=== PATIENT | female | born 1995 | race Caucasian/White ===

== ENCOUNTER 2017-03-22 19:51 | Emergency (ER) | payer MEDICAID ==
[2017-03-22 20:28] VITALS: BP 125/63
--- NOTE | 2017-03-22 21:02 | UC ---
Abdominal Pain Female HPI - HPI Summary HPI Summary: compalint of LLQ pain that started 4 days ago doesn't feel like menstrual cramping constant aching pain sometimes it is a stabbing pain, pressure- radites into he lower back has felt nauseated- denies vomiting and diarrhea denies dysuira- no pain, denies increase in urgencyor frequency last BM this morning- normal formed stool - no blood in stool denies fever and chills denies vaginal discharge LMP 02/23/17 has been taking ibuprofen and naproxen without any relief today - History of Current Complaint Chief Complaint: UCAbdominalPain Stated Complaint: LEFT LOWER ABDOMINAL PAIN Hx Obtained From: Patient Hx Last Menstrual Period: 02/23/17 Allergies/Adverse Reactions: Allergies Allergy/AdvReac Type Severity Reaction Status Date / Time Penicillins Allergy Severe Hives Verified 03/22/17 20:23 Cephalosporins Allergy Hives Verified 03/22/17 20:23 Sulfa Antibiotics Allergy Hives Verified 03/22/17 20:23 Home Medications: Home Medications Naproxen Sodium [Naproxen Sodium 220 mg cap] 440 mg PO ONCE PRN 03/22/17 [ History Confirmed 03/22/17] PMH/Surg Hx/FS Hx/Imm Hx Previously Healthy: Yes Endocrine History Of: Denies: Diabetes, Thyroid Disease Cardiovascular History Of: Denies: Cardiac Disorders, Hypertension Respiratory History Of: Denies: COPD, Asthma GI/ History Of: Denies: Ulcer - Surgical History Surgical History: None - Family History Known Family History: Positive: Hypertension, Diabetes Negative: Cardiac Disease - Social History Occupation: Employed Part-time, Student Lives: With Family Alcohol Use: None Substance Use Type: None Smoking Status (MU): Never Smoked Tobacco - Immunization History Most Recent Influenza Vaccination: Not the Season Vaccination Up to Date: Yes Review of Systems Constitutional: Negative Skin: Negative Eyes: Negative ENT: Negative Respiratory: Negative Cardiovascular: Negative Gastrointestinal: Abdominal Pain Genitourinary: Negative Motor: Negative Neurovascular: Negative Musculoskeletal: Negative Neurological: Negative Psychological: Negative All Other Systems Reviewed And Are Negative: Yes Physical Exam Triage Information Reviewed: Yes Appearance: No Pain Distress, Well-Nourished, Obese Vital Signs: Initial Vital Signs Temp 99.3 F 03/22/17 20:24 Pulse 88 03/22/17 20:24 Resp 18 03/22/17 20:24 BP 125/63 05/06/17 20:24 Pulse Ox 100 03/22/17 20:24 Vital Signs Reviewed: Yes Eyes: Positive: Conjunctiva Clear ENT: Positive: Pharynx normal, TMs normal Neck: Positive: No Lymphadenopathy Respiratory: Positive: Lungs clear, Normal breath sounds, No respiratory distress, No accessory muscle use Cardiovascular: Positive: RRR, No Murmur, Pulses Normal Abdomen Description: Positive: No Organomegaly, Soft, Other: - LUQ/LLQ tenderness. Negative: CVA Tenderness (R), CVA Tenderness (L), Distended, Guarding Bowel Sounds: Positive: Present Musculoskeletal: Positive: No Edema Neurological: Positive: Alert Psychological Exam: Normal Skin Exam: Normal Abd Pain Female Course/Dx - Course Course Of Treatment: exam completed. UA is negative. due to LLQ/LUQ pain will send to higher level of care for further evaluation - Differential Dx/Diagnosis Differential Diagnosis: Bowel Obstruction, Constipation, Diverticulitis, Ectopic , Ovarian Cyst Provider Diagnoses: LLQ,LUQ abdominal pain - Physician Notification/Consults Discussed Patient Care With: Dr Lutz Time Discussed With Above Provider: 21:27 Discharge - Discharge Plan Condition: Stable Disposition: TRANS HIGHER L OF CARE FAC Referrals: Gray Wynn MD [Primary Care Provider] -
== END 2017-03-22 21:33 | disposition short-term general hospital (02) ==
LOC: UCCORT 19:51
DX: R10.32 Left lower quadrant pain (principal); R10.12 Left upper quadrant pain; Z32.02 Encounter for pregnancy test, result negative; E66.9 Obesity, unspecified; Z88.1 Allergy status to other antibiotic agents; Z88.2 Allergy status to sulfonamides
CPT/HCPCS: 81003; 84702; 99212; G0463

== ENCOUNTER 2017-10-23 17:25 | Emergency (ER) | payer MEDICAID, OTHER ==
--- NOTE | 2017-10-23 18:57 | UC ---
Hip/Pelvis Pain - HPI Summary HPI Summary: Increased pain in the right hip without any apparent injury, rates 05/26. No relief with ibuprofen 600mg x 2 doses only. Has a 2 year history of off and on pain in the right hip without a clear precipitant. Was a high school cheerleader. Exacerbated by walking, increases late in the day, does not disrupt sleep. - History Of Current Complaint Chief Complaint: UCLowerExtremity Stated Complaint: RT HIP PAIN Time Seen by Provider: 10/23/17 18:50 Hx Obtained From: Patient Hx Last Menstrual Period: 10/10/17 ?: No Onset/Duration: Gradual Onset, Lasting Days - 2 days Timing: Intermittent Episodes Lasting: - days Severity Initially: Mild Severity Currently: Moderate Pain Intensity: 7 Pain Scale Used: 0-10 Numeric Location: Discrete At: - right greater trochanter, Radiates To: - groin Character Of Pain: Aching Aggravating Factor(s): Movement, Weight Bearing Alleviating Factor(s): Rest, OTC Medications - minimal trial of nsaid Associated Signs And Symptoms: Negative: Knee Pain Related History: Similar Episode/Dx As - never evaluated, but has had recurrent pain x 2 years. - Risk Factors Septic Arthritis Risk Factor: Negative - Allergies/Home Medications Allergies/Adverse Reactions: Allergies Allergy/AdvReac Type Severity Reaction Status Date / Time Penicillins Allergy Severe Hives Verified 10/23/17 17:52 Cephalosporins Allergy Hives Verified 10/23/17 17:52 Sulfa Antibiotics Allergy Hives Verified 10/23/17 17:52 Home Medications: Home Medications Escitalopram (NF) [Lexapro 10 mg (NF)] 10 mg PO DAILY 10/23/17 [History Confirmed 10/23/17] Ibuprofen TAB* [Advil TAB*] 600 mg PO Q6H PRN 10/23/17 [History Confirmed ] Levonorgestrel & Eth Estradiol [Orsythia] 1 tab PO DAILY 10/23/17 [History Confirmed 10/23/17] PMH/Surg Hx/FS Hx/Imm Hx - Additional Past Medical History Additional PMH: obese chronic daily recurrent hiccoughs. Psychological History: Anxiety - on escitaloprim to control anxiety - Surgical History Surgical History: None - Family History Known Family History: Positive: Hypertension, Diabetes Negative: Cardiac Disease - Social History Occupation: Employed Part-time, Student - [employer]. Alcohol Use: None Substance Use Type: None Smoking Status (MU): Never Smoked Tobacco - Immunization History Most Recent Influenza Vaccination: August 2017 Vaccination Up to Date: Yes Review of Systems Constitutional: Other - no recent illnesses Musculoskeletal: Arthralgia, Other: - has episodes of numbness to the right lateral thigh, extending to the knee. No hx of back pain or injury. Is Patient Immunocompromised?: No All Other Systems Reviewed And Are Negative: Yes Physical Exam Triage Information Reviewed: Yes Appearance: Well-Appearing, Pain Distress - mild Vital Signs: Initial Vital Signs Temp 98.6 F 10/23/17 17:51 Pulse 90 10/23/17 17:51 Resp 16 10/23/17 17:51 BP 120/84 10/23/17 17:51 Pulse Ox 100 10/23/17 17:51 Eyes: Positive: Conjunctiva Clear ENT: Positive: Pharynx normal Neck: Positive: Nontender, No Lymphadenopathy Respiratory: Positive: Lungs clear, Normal breath sounds Cardiovascular: Positive: RRR, No Murmur Musculoskeletal: Positive: ROM Intact - full rom in right hip, has pain with ER and IR., Strength Limited @ - mild decrease in right hip flexor, 4/5, Other: - normal gait. No lumbar tenderness, full rom in the spine. 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 Dr. Cadet reads as normal hip. Hip Injury Course/Dx - Course Course Of Treatment: nsaid for pain control. referral to ortho for evaluation. - Differential Dx/Diagnosis Differential Diagnosis/HQI/PQRI: Sprain, Strain, Other - labral tear right hip Provider Diagnoses: right hip pain NYD Discharge - Discharge Plan Condition: Stable Disposition: HOME Prescriptions: Naproxen [Naproxen 500 mg] 500 mg PO BID #30 tab Patient Education Materials: Hip Pain (ED) Referrals: Gary Wynn MD [Primary Care Provider] - Additional Instructions: It is possible that you have strained your hip, or that you have an old injury related to cheerleading (possible labral tear). This would only be visible on an MRI. Typically the initial approach to treatment is physical therapy, and you have deferred a referral for now. Please follow up with your primary care doctor on the as arranged. Begin use of naproxen 500mg twice daily with food for 1 to 2 weeks to settle any associated inflammation. Stop if this is causing upset to your stomach.
--- NOTE | 2017-10-23 19:35 | RAD ---
Indication: Right hip pain. 2 views of the right hip and an AP view the pelvis demonstrates no fracture. Pelvic ring is intact. No other bone or joint abnormality is noted. IMPRESSION: Unremarkable right hip.
[2017-10-23 19:57] VITALS: BP 120/77
== END 2017-10-23 19:55 | disposition home or self-care (01) ==
LOC: UCCORT 17:25
DX: M25.551 Pain in right hip (principal); E66.9 Obesity, unspecified; F41.9 Anxiety disorder, unspecified; Z88.0 Allergy status to penicillin; Z88.1 Allergy status to other antibiotic agents; Z88.2 Allergy status to sulfonamides
CPT/HCPCS: 99212; G0463

== ENCOUNTER 2018-03-08 19:08 | Emergency (ER) | payer MEDICAID ==
[2018-03-08 19:55] VITALS: BP 124/79
--- NOTE | 2018-03-08 20:02 | UC ---
[facility] HPI - HPI Summary HPI Summary: Pt c/o right upper molar pain that has worsened over the last 2 days. Pt states she needed a root canal on tooth a year ago but has not had it done. - History of Current Complaint Chief Complaint: UCDentalProblem Stated Complaint: DENTAL COMPLAINT Time Seen by Provider: 03/08/18 19:44 Hx Obtained From: Patient Hx Last Menstrual Period: 02/28/18 ?: No Onset/Duration: Gradual Onset, Lasting Days, Still Present Severity: Moderate Pain Intensity: 8 Aggravating Factor(s): Heat, Cold, Chewing Alleviating Factor(s): Nothing - Allergies/Home Medications Allergies/Adverse Reactions: Allergies Allergy/AdvReac Type Severity Reaction Status Date / Time Cephalosporins Allergy Unknown Hives Verified 03/08/18 19:47 Penicillins Allergy Unknown Hives Verified 03/08/18 19:47 Sulfa (Sulfonamide Allergy Unknown Hives Verified 03/08/18 19:47 Antibiotics) Home Medications: Home Medications Norethindrone [Mayte-Be] 0.35 mg PO DAILY 03/08/18 [History Confirmed 03/08/18] hydrOXYzine HCL TAB* [Atarax TAB 50 MG *] 50 mg PO BEDTIME PRN 03/08/18 [ History Confirmed 03/08/18] PMH/Surg Hx/FS Hx/Imm Hx Previously Healthy: Yes - Surgical History Surgical History: None - Family History Known Family History: Positive: Hypertension, Diabetes Negative: Cardiac Disease - Social History Occupation: Student Lives: With Family Alcohol Use: Occasionally Substance Use Type: None Smoking Status (MU): Never Smoked Tobacco Have You Smoked in the Last Year: No - Immunization History Most Recent Influenza Vaccination: August 2017 Vaccination Up to Date: Yes Review of Systems Constitutional: Negative Skin: Negative Eyes: Negative ENT: Dental Pain Respiratory: Negative Cardiovascular: Negative Gastrointestinal: Negative Genitourinary: Negative Motor: Negative Neurovascular: Negative Musculoskeletal: Negative Neurological: Negative Psychological: Negative Is Patient Immunocompromised?: No All Other Systems Reviewed And Are Negative: Yes Physical Exam Triage Information Reviewed: Yes Appearance: Well-Appearing Vital Signs: Initial Vital Signs Temp 98.1 F 03/08/18 19:49 Pulse 88 03/08/18 19:49 Resp 17 03/08/18 19:49 BP 124/79 03/08/18 19:49 Pulse Ox 98 03/08/18 19:49 Vital Signs Reviewed: Yes Eye Exam: Normal ENT Exam: Normal Dental: Positive: Dental Fracture @ - right upper last molar Respiratory: Positive: Respiratory distress Musculoskeletal Exam: Normal Neurological Exam: Normal Psychological Exam: Normal Skin Exam: Normal Dental Complaint Course/Dx - Differential Dx/Diagnosis Differential Diagnosis/Dx: Dental Abscess, Fractured Tooth Provider Diagnoses: fractured tooth Discharge - Sign-Out/Discharge Documenting (check all that apply): Discharge - Discharge Plan Condition: Stable Disposition: HOME Prescriptions: Clindamycin Cap(NF) [Clindamycin Cap 300 mg Cap(NF)] 300 mg PO Q8H #30 cap Lidocaine 2% VISCOUS* [Xylocaine 2% Viscous*] 15 ml SWISH SPIT Q4H PRN #1 btl PRN Reason: Pain predniSONE TAB* [Deltasone TAB*] 30 mg PO DAILY #12 tab Patient Education Materials: Toothache (ED) Referrals: Erma Alvarado PA [Primary Care Provider] - If Needed - Billing Disposition and Condition Condition: STABLE Disposition: HOME
[2018-03-08] MEDS ORDERED: Clindamycin CAP* 150 MG PO ONE (20:22)
== END 2018-03-08 20:30 | disposition home or self-care (01) ==
LOC: UCCORT 19:08
DX: K03.81 Cracked tooth (principal); Z88.0 Allergy status to penicillin; Z88.3 Allergy status to other anti-infective agents; Z88.2 Allergy status to sulfonamides
CPT/HCPCS: 99212; A9270-GY; G0463